=== PATIENT | female | born 1985 | race Caucasian/White ===

== ENCOUNTER → 2020-07-26 | Outpatient (CLI) | payer SELFPAY | LOC: RAD 12:22 | DX: O26.899 Other specified pregnancy related conditions, unspecified trimester (principal); O00.90 Unspecified ectopic pregnancy without intrauterine pregnancy; N93.9 Abnormal uterine and vaginal bleeding, unspecified; Z67.91 Unspecified blood type, Rh negative ==

== ENCOUNTER 2022-02-04 10:38 | Emergency (ER) | payer SELFPAY ==
[2022-02-04 10:41] VITALS: BP 127/72
== END 2022-02-04 12:02 | disposition home or self-care (01) ==
LOC: ED 10:38
DX: S82.64XA Nondisplaced fracture of lateral malleolus of right fibula, initial encounter for closed fracture (principal); W18.49XA Other slipping, tripping and stumbling without falling, initial encounter
CPT/HCPCS: L4386

== ENCOUNTER → 2022-04-07 | Outpatient (CLI) | payer SELFPAY | LOC: LAB 11:23 → RAD 11:23 | DX: S82.831A Other fracture of upper and lower end of right fibula, initial encounter for closed fracture (principal); X58.XXXA Exposure to other specified factors, initial encounter ==

== ENCOUNTER → 2022-05-29 | Outpatient (CLI) | payer SELFPAY | LOC: RAD 13:16 | DX: S82.64XA Nondisplaced fracture of lateral malleolus of right fibula, initial encounter for closed fracture (principal) ==